=== PATIENT | female | born 1940 | race Caucasian/White ===

== ENCOUNTER 2019-09-27 15:00 | Emergency (ER) | payer OTHER, MEDICARE ==
[~2019-09-27] VITALS: Ht 152.4 cm; Wt 72.6 kg
[~2019-09-27 15:00] MED LIST: AC500T; ASPI-84; BISO5TAB8; CALC600T; CRAN1TAB; DCS100C; DIPH25TA82; ESTR0.3T; FAMO20TA73; FENO145T2; LRT10T; MNTL10T; MULT-608; NAPR220T76; OMG1KC; SOLI5TAB4; VALS1TAB4; VIT1CAPS2
[2019-09-27 15:24] LABS: HEMOGLOBIN 12.5 G/DL (11.5-16.0); MEAN PLATELET VOLUME 9.9 FL (7.4-10.4); RED CELL DISTRIBUTION WIDTH 14.2 % (10.0-14.5)
[2019-09-27 15:30] LABS: CHLORIDE 107 MMOL/L (98-107)
[2019-09-27 15:31] LABS: SODIUM 138 MMOL/L (135-145)
[2019-09-27 15:33] LABS: GLUCOSE 127 MG/DL (70-105); TOTAL PROTEIN 6.7 GM/DL (6.4-8.2)
[2019-09-27 15:34] LABS: CARBON DIOXIDE 19 MMOL/L (21-32)
[2019-09-27 15:35] LABS: BILIRUBIN,TOTAL 0.5 MG/DL (0.1-1.0)
[2019-09-27 15:37] LABS: ALKALINE PHOSPHATASE 37 U/L (40-136); CREATININE SERUM 1.47 MG/DL (0.60-1.30); GFR ESTIMATED 34
[2019-09-27 15:38] LABS: BILIRUBIN,DIRECT 0.2 MG/DL (0.0-0.3); BILIRUBIN,INDIRECT 0.3 MG/DL; BUN/CREATININE RATIO 24
[2019-09-27 15:40] LABS: ALANINE AMINOTRANSFERASE 13 U/L (0-55)
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
--- NOTE | 2019-09-27 15:56 | NUR ---
Cervical collar removed by Dr. Musa at 1556.
[2019-09-27] MEDS ORDERED: fentaNYL INJECTION 100 MCG/2 ML AMP IVP ONE (16:00)
--- NOTE | 2019-09-27 16:00 | NUR ---
Cervical collar temporarily removed by Dr. Musa for assesment. Replaced by Dr. Muas at 1600.
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
--- NOTE | 2019-09-27 17:00 | NUR ---
Pt signed consent for EMS transfer to [facility].
--- NOTE | 2019-09-27 17:13 | NUR ---
Pt report called to KRUNAL Finnegan from [facility] for ER-ER transfer.
[2019-09-27 17:15] LABS: BILIRUBIN,URINE NEGATIVE (NEGATIVE); CLARITY,URINE CLEAR; COLOR,URINE YELLOW; GLUCOSE, URINE (UA) NEGATIVE (NEGATIVE); KETONES,URINE NEGATIVE (NEGATIVE); LEUKOCYTE ESTERASE ,URINE NEGATIVE (NEGATIVE); NITRITE,URINE NEGATIVE (NEGATIVE); PH,URINE 6.5 (5-9); PROTEIN,URINE NEGATIVE (NEGATIVE)
[2019-09-27 17:21] LABS: BACTERIA,URINE TRACE /HPF; SQUAMOUS EPITHELIAL CELL,UR RARE /HPF
[2019-09-27] MEDS ORDERED: NS IV 1000 ML 1,000 ML IV SCH (17:27)
[2019-09-27] MEDS ORDERED: TETANUS,DIPTH,PERTUSS P/F (BOOSTRIX) 0.5 ML VIAL IM ONE (17:30)
[2019-09-27 17:55] VITALS: BP 191/81
== END 2019-09-27 17:55 | disposition short-term general hospital (02) ==
LOC: EDUNIT# 15:06 → ER 15:07
DX: S51.812A Laceration without foreign body of left forearm, initial encounter (principal); S51.811A Laceration without foreign body of right forearm, initial encounter; S70.12XA Contusion of left thigh, initial encounter; S70.11XA Contusion of right thigh, initial encounter; S80.02XA Contusion of left knee, initial encounter; S80.01XA Contusion of right knee, initial encounter; S60.222A Contusion of left hand, initial encounter; S60.221A Contusion of right hand, initial encounter; S60.022A Contusion of left index finger without damage to nail, initial encounter; S60.021A Contusion of right index finger without damage to nail, initial encounter; S60.052A Contusion of left little finger without damage to nail, initial encounter; S60.051A Contusion of right little finger without damage to nail, initial encounter; S60.032A Contusion of left middle finger without damage to nail, initial encounter; S60.031A Contusion of right middle finger without damage to nail, initial encounter; S60.042A Contusion of left ring finger without damage to nail, initial encounter; S60.041A Contusion of right ring finger without damage to nail, initial encounter; S60.012A Contusion of left thumb without damage to nail, initial encounter; S60.011A Contusion of right thumb without damage to nail, initial encounter; S30.1XXA Contusion of abdominal wall, initial encounter; S00.81XA Abrasion of other part of head, initial encounter; R40.2142 Coma scale, eyes open, spontaneous, at arrival to emergency department; R40.2252 Coma scale, best verbal response, oriented, at arrival to emergency department; R40.2362 Coma scale, best motor response, obeys commands, at arrival to emergency department; Z23 Encounter for immunization; V49.40XA Driver injured in collision with unspecified motor vehicles in traffic accident, initial encounter
CPT/HCPCS: 51702; 70450; 71260; 72125; 74177; 80048; 80076; 81000; 85027; 93041; G0480; 36415; 80320; 90715

== ENCOUNTER 2021-07-08 05:32 | Outpatient (CLI) | payer MEDICARE ==
[~2021-07-08] VITALS: Ht 152.4 cm; Wt 72.7 kg
[2021-07-17] MEDS ORDERED: GLUC1TAB20 PO (09:55)
[2021-07-17] MEDS ORDERED: ESTR0.5T3 PO (09:55)
[2021-07-17] MEDS ORDERED: ACET-2840 PO (09:55)
[2021-07-17] MEDS ORDERED: OXYB10TA29 PO (09:55)
[2021-07-17] MEDS ORDERED: CETI10TA49 PO (09:55)
[2021-07-17] MEDS ORDERED: FENO160T12 PO (09:55)
[2021-07-17] MEDS ORDERED: CHOL200078 PO (09:55)
[2021-07-17] MEDS ORDERED: ATOR10TA66 PO (09:55)
[2021-07-17] MEDS ORDERED: VITA1CAP PO (09:56)
[2021-07-17] MEDS ORDERED: CALC500T7 PO (09:57)
== END 2021-07-17 10:49 | disposition home or self-care (01) ==
LOC: PREOP 05:32
PROVIDERS: ATTEND Specialist
DX: Z01.818 Encounter for other preprocedural examination (principal)

== ENCOUNTER 2021-07-18 10:31 | Day surgery (SDC) | payer MEDICARE ==
[~2021-07-18] VITALS: Ht 152.4 cm; Wt 72.7 kg
[~2021-07-18 10:31] MED LIST changes: +ACET-2840 PO; +ATOR10TA66 PO; +CALC500T7 PO; +CETI10TA49 PO; +CHOL200078 PO; +ESTR0.5T3 PO; +FENO160T12 PO; +GLUC1TAB20 PO; +OXYB10TA29 PO; +VITA1CAP PO
[2021-07-18] MEDS ORDERED: TIMOLOL MALEATE 0.5% 5 ML (TIMOPTIC) BTL OU PRN (11:15)
[2021-07-18] MEDS ORDERED: POVIDONE (BETADINE) OPHTH SOLN 5% 30 ML OP ONE (11:15)
[2021-07-18] MEDS ORDERED: LIDOCAINE PF 1% 2 ML VIAL IR PRN (11:15)
[2021-07-18] MEDS ORDERED: MOXIFLOXACIN OPHTH SOLN 5 MG/ML 0.3 ML SYRINGE OP ONE (11:15)
[2021-07-18] MEDS: TETRACAINE 0.5% OPHTH SOLN 4 ML BTL (SINGLE DOSE ONLY) OU PRN ×4 (11:21→11:37)
[2021-07-18] MEDS: PHENYLEPHRINE 10% OPHTH (NEO-SYN) 5 ML BTL OU SCH ×3 (11:27→11:37)
[2021-07-18] MEDS: TROPICAMIDE 1% OPH SOLN (MYDRIACYL) 15 ML BTL OP SCH ×3 (11:27→11:37)
[2021-07-18 11:33] VITALS: BP 180/77
--- NOTE | 2021-07-18 12:00 | Ophthalmologist Pre-Op Note ---
Pre-Operative Progress Note H&P Reviewed The H&P was reviewed, patient examined and no changes noted. Date H&P Reviewed: July 18, 2021 Time H&P Reviewed: 12:00 Pre-Op Dx Cataract, Left Eye NATHANIEL GIBSON MD July 18, 2021 12:00
[2021-07-18] MEDS ORDERED: MIDAZOLAM 2 MG/2 ML (VERSED) VIAL ONE (12:04)
--- NOTE | 2021-07-18 12:25 | Ophthalmology Operative Report ---
Cataract removal/placement IOL PREOPERATIVE DIAGNOSIS: Cataract Left Eye POSTOPERATIVE DIAGNOSIS: Cataract Left Eye PROCEDURE: Cataract removal and placement of posterior chamber implant, left eye SURGEON: Rajendra Gibson ANESTHESIA: Topical with sedation COMPLICATIONS: None ESTIMATED BLOOD LOSS: Minimal DESCRIPTION OF PROCEDURE: After proper informed consent was obtained, the patient, a 81 female, was taken to the Operating Room and the left eye was anesthetized with tetracaine. The left eye was then prepped and draped in the usual manner. A wire lid speculum was placed. A paracentesis was made at the left hand position. Preservative free lidocaine was injected into the anterior chamber followed by viscoelastic. A clear corneal incision was made in the temporal position. A capsulorrhexis was preformed and the central nuclear and cortical material were removed. The posterior capsule was polished and an Jim 21.5 AU00T0 was placed into the capsular bag. The residual viscoelastic was aspirated and balanced saline solution was injected into the anterior chamber. Moxifloxacin was injected into the anterior chamber. The wound was checked and found to be water tight. The patient tolerated the procedure well without complications. RAJENDRA GIBSON MD July 18, 2021 12:25
[2021-07-18 12:40] VITALS: BP 176/67
[2021-07-18] MEDS ORDERED: acetaZOLAMIDE ER 500 MG CAP (DIAMOX SEQUELS) PO ONE (13:00)
--- NOTE | 2021-07-18 14:08 | Anesthesia-General Post-Op ---
MAC Patient Condition Mental Status/LOC: Same as Preop Cardiovascular: Satisfactory Nausea/Vomiting: Absent Respiratory: Satisfactory Pain: Controlled Complications: Absent Post Op Complications Complications None Follow Up Care/Instructions Patient Instructions None needed. Anesthesiology Discharge Order Discharge Order Patient is doing well, no complaints, stable vital signs, no apparent adverse anesthesia problems. No complications reported per nursing. DAGO OHARA CRNA July 18, 2021 14:08
== END 2021-07-18 12:42 | disposition home or self-care (01) ==
LOC: SDC 10:31
PROVIDERS: ATTEND Specialist
DX: H25.9 Unspecified age-related cataract (principal); Z79.82 Long term (current) use of aspirin
CPT/HCPCS: 66984; V2632

== ENCOUNTER 2021-08-01 11:48 | Day surgery (SDC) | payer MEDICARE ==
[~2021-08-01] VITALS: Ht 152.4 cm; Wt 72.7 kg
[2021-08-01] MEDS ORDERED: POVIDONE (BETADINE) OPHTH SOLN 5% 30 ML OP ONE (12:00)
[2021-08-01] MEDS ORDERED: TIMOLOL MALEATE 0.5% 5 ML (TIMOPTIC) BTL OU PRN (12:00)
[2021-08-01] MEDS ORDERED: LIDOCAINE PF 1% 2 ML VIAL IR PRN (12:00)
[2021-08-01] MEDS ORDERED: MOXIFLOXACIN OPHTH SOLN 5 MG/ML 0.3 ML SYRINGE OP ONE (12:00)
[2021-08-01] MEDS: TETRACAINE 0.5% OPHTH SOLN 4 ML BTL (SINGLE DOSE ONLY) OU PRN ×4 (12:01→12:18)
[2021-08-01 12:03] VITALS: BP 188/79
[2021-08-01] MEDS: PHENYLEPHRINE 10% OPHTH (NEO-SYN) 5 ML BTL OU SCH ×3 (12:08→12:18)
[2021-08-01] MEDS: TROPICAMIDE 1% OPH SOLN (MYDRIACYL) 15 ML BTL OP SCH ×3 (12:08→12:18)
--- NOTE | 2021-08-01 12:45 | Ophthalmologist Pre-Op Note ---
Pre-Operative Progress Note H&P Reviewed The H&P was reviewed, patient examined and no changes noted. Date H&P Reviewed: August 01, 2021 Time H&P Reviewed: 12:45 Pre-Op Dx Cataract, Right Eye NATHANIEL GIBSON MD August 01, 2021 12:45
[2021-08-01] MEDS ORDERED: MIDAZOLAM 2 MG/2 ML (VERSED) VIAL ONE (12:50)
--- NOTE | 2021-08-01 13:09 | Ophthalmology Operative Report ---
Cataract removal/placement IOL PREOPERATIVE DIAGNOSIS: Cataract Right Eye POSTOPERATIVE DIAGNOSIS: Cataract Right Eye PROCEDURE: Cataract removal and placement of posterior chamber implant, right eye SURGEON: Rajendra Gibson ANESTHESIA: Topical with sedation COMPLICATIONS: None ESTIMATED BLOOD LOSS: Minimal DESCRIPTION OF PROCEDURE: After proper informed consent was obtained, the patient, a 81 female, was taken to the Operating Room and the right eye was anesthetized with tetracaine. The right eye was then prepped and draped in the usual manner. A wire lid speculum was placed. A paracentesis was made at the left hand position. Preservative free lidocaine was injected into the anterior chamber followed by viscoelastic. A clear corneal incision was made in the temporal position. A capsulorrhexis was preformed and the central nuclear and cortical material were removed. The posterior capsule was polished and Jim 18.5 AU00T0 IOL was placed into the capsular bag. The residual viscoelastic was aspirated and balanced saline solution was injected into the anterior chamber. Moxifloxacin was injected into the anterior chamber. The wound was checked and found to be water tight. The patient tolerated the procedure well without complications. RAJENDRA GIBSON MD August 01, 2021 13:09
[2021-08-01 13:12] VITALS: BP 162/62
[2021-08-01] MEDS ORDERED: acetaZOLAMIDE ER 500 MG CAP (DIAMOX SEQUELS) PO ONE (13:30)
--- NOTE | 2021-08-01 13:54 | Anesthesia-General Post-Op ---
MAC Patient Condition Mental Status/LOC: Same as Preop Cardiovascular: Satisfactory Nausea/Vomiting: Absent Respiratory: Satisfactory Pain: Controlled Complications: Absent Post Op Complications Complications None Follow Up Care/Instructions Patient Instructions None needed. Anesthesiology Discharge Order Discharge Order Patient is doing well, no complaints, stable vital signs, no apparent adverse anesthesia problems. No complications reported per nursing. RAFA PALACIOS CRNA August 01, 2021 13:54
== END 2021-08-01 13:14 | disposition home or self-care (01) ==
LOC: SDC 11:48
PROVIDERS: ATTEND Specialist
DX: H25.9 Unspecified age-related cataract (principal)
CPT/HCPCS: 66984; V2632